=== PATIENT | female | born 1945 | race Caucasian/White ===

== ENCOUNTER → 2016-08-03 | Outpatient (CLI) | payer MEDICARE, OTHER ==
[~2016-08-03] MED LIST: ALPRAZOLAM1 MG PO; AMBIEN10 MG PO; BIOTIN300 MCG; CALCIUM 600 +1 EAC1; CELEXA20 MG PO; COQ10-VIT E 101 EACH; CRESTOR5 MG PO; FLEXERIL10 MG PO; LORTAB 7.5-3251 EACH PO; LYRICA; MOBIC15 MG PO; NEXIUM PO; VITAMIN C1000 M2 PO; VITAMIN D1000 UNI1 PO; ZESTORETIC 10-1 EAC1; ZETIA PO
--- NOTE | ~2016-08-03 | CT92 ---
[facility] A Service of [facility] RADIOLOGY TEXT RESULTS PATIENT: SAM SHRESTHA LOCATION: [facility] : 43 UNIT #: [id number] AGE: [address]: Mingo Smith MD SEX: F ORDER DR: [id number] [facility] [address] [place], [place] [address] [id number] O MR#: [id number] Acc #: [id number] NAME: SAM SHRESTHA : 1945 SEX: F STUDY DATE/TIME: 08/03/2016 11:46 UNIT: [facility] ROOM: STUDY DESCRIPTION: CT Lower Ext Lt Wo Cont Attending Physician: Liz Smith M.D. Referring Physician: Liz Smith M.D. Ordering Physician: Liz Smith M.D. Primary Care Physician: Bryn Lofton M.D. MEDICAL IMAGING REPORT This report is preliminary unless electronic signature is present EXAM CT left ankle. HISTORY 70-year-old female preoperative planning for [employer] ankle replacement. COMPARISON Left foot films, 07/21/2016. TECHNIQUE Thin section axial images performed through the left knee and ankle utilizing [employer] protocol. This CT exam was performed with one or more of the following radiation dose reduction techniques: automatic exposure control, adjustment of mA and/or kV according to patient size, and iterative reconstruction. FINDINGS There is deformity of the calcaneus most likely represents the sequela of old fracture. Toxedfgk-ot-dkguxp arthritic changes of the ankle joint. Knee joint demonstrates some narrowing of patellofemoral compartment. Bone stock unremarkable. Soft tissues unremarkable. Moderately advanced arthritic changes are also seen at the first MTP joint. 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 Dictated by.Tye Marie M.D. [facility] A Service of [facility] RADIOLOGY TEXT RESULTS PATIENT: SAM SHRESTHA LOCATION: [facility] : 43 UNIT #: [id number] AGE: [address]: Mingo Smith MD SEX: F ORDER DR: THIS IS AN ELECTRONICALLY VERIFIED REPORT Yuniel Marie M.D. at 08/04/2016 3:42 PM Shant TD: 08/04/2016 10:20 JOB #: [id number] MEDICAL IMAGING REPORT Page 1 of 1 COPY
== END | disposition home or self-care (01) ==
LOC: CCAT 10:21
DX: Z01.818 Encounter for other preprocedural examination (principal); M19.072 Primary osteoarthritis, left ankle and foot
CPT/HCPCS: 73700

== ENCOUNTER → 2016-09-07 | Outpatient (CLI) | payer MEDICARE, OTHER ==
[2016-09-07 12:09] LABS: HEMATOCRIT 44.6 % (35.0-45.0); HEMOGLOBIN 14.3 gm/dL (12.0-16.0); MEAN CELL VOLUME 82.3 FL (83-96); MEAN CORPUSCULAR HEMOGLOBIN 26.4 PG (28-34); MEAN CORPUSCULAR HGB CONC 32.1 g/dL (30-36); MEAN PLATELET VOLUME 8.7 FL (6.5-11.5); RED BLOOD COUNT 5.42 X10e (3.90-5.30); WHITE BLOOD COUNT 13.2 X10e3 (4.0-10.5)
[2016-09-07 12:10] LABS: URINE APPEARANCE CLEAR; URINE BILIRUBIN NEG (NEG); URINE BLOOD NEG (NEG); URINE COLOR DK YELLOW; URINE GLUCOSE NEG (NEG); URINE KETONE NEG (NEG); URINE LEUKOCYTE ESTERASE 1+ (NEG); URINE NITRATE NEG (NEG); URINE PROTEIN NEG (NEG); URINE SPECIFIC GRAVITY 1.021 (1.003-1.035)
[2016-09-07 12:12] LABS: URBCS1 AUWI 0-2 /[HPF] (0-2); URINE BACTERIA AUWI NEG (NEGATIVE); URINE SQUAMOUS EPITHELIAL CELL OCC /[HPF]
[2016-09-07 12:26] LABS: CULTURE INDICATED? NO
[2016-09-07 12:27] LABS: URINE SOURCE CLEAN CATCH
[2016-09-07 13:08] LABS: BUN/CREATININE RATIO 28.57; CALCIUM SERUM 10.2 mg/dL (8.4-10.2); CREATININE SERUM 0.7 mg/dL (0.6-1.4); GLOM FILT RATE Estimated 87.2 mL/min (>60); POTASSIUM 3.8 mmol/L (3.5-5.1)
== END | disposition home or self-care (01) ==
LOC: CAMB 11:38
PROVIDERS: Orthopaedic Surgery
DX: Z01.818 Encounter for other preprocedural examination (principal); M19.072 Primary osteoarthritis, left ankle and foot
CPT/HCPCS: 36415; 80048; 81003; 85027; 87070